=== PATIENT | male | born 1970 | race Caucasian/White ===

== ENCOUNTER 2017-05-11 21:38 | Emergency (ER) | payer SELFPAY ==
[~2017-05-11] VITALS: Ht 170.2 cm; Wt 72.6 kg
--- NOTE | ~2017-05-11 | CR117 ---
[facility] A Service of [facility] & [facility] RADIOLOGY TEXT RESULTS PATIENT: LV TAVAREZ LOCATION: SED : 66 UNIT #: [id number] AGE: [address]: Cate Brewer SEX: M ORDER DR: [id number] [address] [id number] MR#: [id number] Acc #: [id number] NAME: LV TAVAREZ : 1970 SEX: M STUDY DATE/TIME: 05/11/2017 22:19 UNIT: SED ROOM: STUDY DESCRIPTION: CR Finger 2 View Thumb Rt Attending Physician: Cate Brewer Pa-C Ordering Physician: Cate Brewer Pa-C Primary Care Physician: No Primary Care Physician MEDICAL IMAGING REPORT This report is preliminary unless electronic signature is present. EXAM Right thumb, 3 views, 05/11/2017. HISTORY Puncture wound to right thumb at 1400 today. Drill bit hit thumb. Pain, bruising and swelling right thumb below nail and cuticle. FINDINGS Three views of the right thumb demonstrate no fracture. The bones are normally mineralized. No foreign body is seen. IMPRESSION No evidence of fracture or radiopaque foreign body. Dictated by... Shemar Eli M.D. THIS IS AN ELECTRONICALLY VERIFIED REPORT Shemar Eli M.D. at 05/12/2017 4:04 PM JULIANA/hiral TD: 05/12/2017 12:50 JOB #: [id number] MEDICAL IMAGING REPORT Page 1 of 1
[~2017-05-11 21:38] MED LIST: BACTRIM DS TABL1 TA1 PO; IBUPROFEN800 MG PO; KEFLEX500 M2 PO; NAPROSYN250 M1 PO; NO MEDICATIONS; PHENERGAN PO; PHENERGAN PR; ROBAXIN500 MG PO; TYLENOL #3 PO
== END 2017-05-11 23:10 | disposition home or self-care (01) ==
LOC: SED 21:38
DX: S61.031A Puncture wound without foreign body of right thumb without damage to nail, initial encounter (principal); F17.210 Nicotine dependence, cigarettes, uncomplicated; Z79.899 Other long term (current) drug therapy; W31.0XXA Contact with mining and earth-drilling machinery, initial encounter
CPT/HCPCS: 73140; 99283